=== PATIENT | female | born 1930 | race Caucasian/White ===

== ENCOUNTER 2020-01-25 19:48 | Observation (INO) | payer MEDICARE, OTHER ==
[2020-01-25] MEDS ORDERED: Sodium Chloride 0.9% 10 ML Syringe FLUSH PRN ×2 (20:27→22:15)
--- NOTE | 2020-01-25 20:47 | EDM.PDOC ---
ED HPI GENERAL MEDICAL PROBLEM - General Chief Complaint: Abdominal Pain Stated Complaint: ABDOMINAL PAIN Time Seen by Provider: 01/25/20 20:11 Source of Information: Reports: Patient, Family - History of Present Illness INITIAL COMMENTS - FREE TEXT/NARRATIVE: Jena is an [age]y/o female who is brought to the ER by her daughter for a 3 days history of nausea and chills. Tonight her daughter came to take her out for supper and she could not even eat. She has been very tired and had an upset stomach. She also reports a few bouts of dark colored diarrhea, denies minh blood. She has however been using Pepto-Bismol about 3 times daily for the last 3 days. She is weak and just doesn't feel well and keep saying she is cold. She lives in her own home and denies any COVID exposures. Abdominal Pain Score (Numeric/FACES): 5 - Related Data Allergies Allergy/AdvReac Type Severity Reaction Status Date / Time alendronate sodium Allergy Other Verified 01/25/20 19:51 [From Fosamax] aspirin Allergy Other Verified 01/25/20 19:51 calcitonin,salmon,synthetic Allergy Other Verified 01/25/20 19:51 [From Miacalcin] celecoxib [From Celebrex] Allergy Other Verified 01/25/20 19:51 codeine Allergy Cannot Verified 01/25/20 19:51 Remember erythromycin base Allergy Cannot Verified 01/25/20 19:51 Remember hydrochlorothiazide Allergy Other Verified 01/25/20 19:51 Penicillins Allergy Rash Verified 01/25/20 19:51 timolol maleate Allergy Other Verified 01/25/20 19:51 [From Timoptic] tramadol HCl [From Ultram] Allergy Other Verified 01/25/20 19:51 Home Meds: Home Meds Lisinopril 20 mg PO DAILY 10/01/15 [History] Carboxymethylcellulos/Glycerin [Refresh Optive Gel Eye Drops] 1 drop EYEBOTH BID 10/16/15 [History] Past Medical History HEENT History: Reports: Cataract, Other (See Below) Other HEENT History: astigmatism retinal disorder. dry eyes macular pucker. myopia. presbyopia. pseudophakos Cardiovascular History: Reports: High Cholesterol, Hypertension, Other (See Below) Other Cardiovascular History: varicose vein Gastrointestinal History: Reports: Colon Polyp, Diverticulosis, GERD, Other (See Below) Other Gastrointestinal History: elevated LFT's, hx of c. diff, abdominal pain [employer] History: Reports: Musculoskeletal History: Reports: Arthritis, Osteoporosis, Other (See Below) Other Musculoskeletal History: calcaneal spur, chronic fatigue, polymyalgia, rheumatica Neurological History: Reports: Seizure, Other (See Below) Other Neuro History: L sided low back pain with left sided sciatica Psychiatric History: Reports: Other (See Below) Other Psychiatric History: chronic fatigue syndrome Endocrine/Metabolic History: Reports: Osteoporosis, Vitamin D Deficiency Hematologic History: Reports: Anemia, Iron Deficiency Oncologic (Cancer) History: Reports: Breast Dermatologic History: Reports: Other (See Below) Other Dermatologic History: skin lesion R leg - Infectious Disease History Infectious Disease History: Reports: C-Difficile Other Infectious Disease History: herpes simplex virus - Past Surgical History HEENT Surgical History: Reports: Cataract Surgery, Retinal, Tonsillectomy, Other (See Below) GI Surgical History: Reports: Appendectomy, Cholecystectomy, Colonoscopy, EGD, Hernia Repair/Other, Other (See Below) Female Surgical History: Reports: Breast Reconstruction, Hysterectomy, Oophorectomy Oncologic Surgical History: Reports: Mastectomy Social & Family History - Tobacco Use Tobacco Use Status *Q: Former Tobacco User Used Tobacco, but Quit: Yes Month/Year Tobacco Last Used: 1994 Review of Systems - Review of Systems Review Of Systems: See Below Constitutional: Reports: Chills, Weakness Eyes: Reports: No Symptoms Ears: Reports: No Symptoms Nose: Reports: No Symptoms Mouth/Throat: Reports: No Symptoms Respiratory: Reports: No Symptoms Cardiovascular: Reports: No Symptoms GI/Abdominal: Reports: Abdominal Pain, Decreased Appetite, Diarrhea, Nausea Genitourinary: Reports: No Symptoms Musculoskeletal: Reports: No Symptoms Skin: Reports: No Symptoms Neurological: Reports: No Symptoms Psychiatric: Reports: No Symptoms ED EXAM, GENERAL - Physical Exam Exam: See Below General Appearance: Alert, WD/WN, No Apparent Distress (Elderly female, who does not appear to feel well. She is weak and requires standby assitance to get to the ER cart an then lay down.) Eye Exam: Bilateral Eye: PERRL Ears: Normal External Exam, Normal Canal, Hearing Grossly Normal, Normal TMs Nose: Normal Inspection, Normal Mucosa Throat/Mouth: Normal Inspection, Normal Lips, Normal Teeth, Normal Oropharynx, Normal Voice Head: Atraumatic, Normocephalic Neck: Normal Inspection, Supple, Non-Tender Respiratory/Chest: No Respiratory Distress, Normal Breath Sounds, Chest Non- Tender, Decreased Breath Sounds (bases) Cardiovascular: Normal Peripheral Pulses, Regular Rate, Rhythm, No Edema GI/Abdominal: Normal Bowel Sounds, Soft (diffusely with palpation, dififcult to say if she is bloated or her normal anatomy), Tender (Female) Exam: Deferred Rectal (Female) Exam: Normal Rectal Tone, Heme - Stool Back Exam: Normal Inspection Extremities: Normal Inspection, Normal Capillary Refill Neurological: Alert, Oriented, CN II-XII Intact Skin Exam: Warm, Dry, Intact, Normal Color Lymphatic: No Adenopathy #1 Interpretation EKG Date: 01/25/20 Time: 21:10 Rhythm: Other (Sinus Tachycardia) Rate (Beats/Min): 100 [place]: Normal P-Wave: Present QRS: Normal ST-T: Normal QT: Normal Comparison: NA - No Prior EKG Course - Vital Signs Text/Narrative:: 2010 The patient was seen by the [facility] [employer] [facility]. COVID test ordered and found to be negative. Additional labs and CXR ordered. 2144 CXR reviewed, note left lower consolidation developing-See final report. Labs reviewed. Note neutrophils=91.8%, BUN=20, Gyeknbw=626, and Lactic Acid=2.3. Will start tx for CAP. Ceftriaxone 1gm IVPB and Azithromycin 1gm IVPB ordered. Case discussed with Dr Hosea Palencia who advises Observation Admission. See orders. Will gently start IV fluids and repeat labs since Lactic Acid=2.4. Last Recorded V/S: Last Vital Signs Temp 37.1 C 01/25/20 21:29 Pulse 98 01/25/20 21:29 Resp 18 01/25/20 21:29 BP 162/76 H 01/25/20 21:29 Pulse Ox 92 L 01/25/20 21:29 - Orders/Labs/Meds Orders: Active Orders 24 hr Category Date Time Status Patient Status [ADT] Routine ADT 01/25/20 21:49 Ordered EKG Documentation Completion [RC] STAT Care 01/25/20 20:27 Active Chest 1V Frontal [CR] Stat Exams 01/25/20 20:27 Ordered CULTURE BLOOD [BC] Stat Lab 01/25/20 20:28 Ordered CULTURE BLOOD [BC] Stat Lab 01/25/20 20:28 Ordered CULTURE URINE [RM] Stat Lab 01/25/20 21:15 Received FECAL OCCULT BLOOD,POC DIAG [POC] Stat Lab 01/25/20 20:25 Ordered Sodium Chloride 0.9% [Saline Flush] Med 01/25/20 20:27 Active 10 ml FLUSH ASDIRECTED PRN Blood Culture x2 Reflex Set [OM.PC] Stat Oth 01/25/20 20:27 Ordered Saline Lock Insert [OM.PC] Stat Oth 01/25/20 20:27 Ordered Medication Orders Sodium Chloride (Saline Flush) 10 ml FLUSH ASDIRECTED PRN PRN Reason: Keep Vein Open Labs: Laboratory Tests 01/25/20 01/25/20 01/25/20 Range/Units 20:10 20:46 20:46 WBC 9.6 (4.0-10.0) x10^3/uL RBC 4.26 (4.00-5.50) x10^6/uL Hgb 13.2 (12.0-16.0) g/dL Hct 38.0 (33.0-47.0) % MCV 89.2 (78.0-93.0) fL MCH 31.0 (26.0-32.0) pg MCHC 34.7 (32.0-36.0) g/dL RDW Coeff of Vasquez 13.3 (10.0-15.0) % Plt Count 190 (130-400) x10^3/uL Neut % (Auto) 91.8 H (50.0-80.0) % Lymph % (Auto) 3.6 L (25.0-50.0) % [place] % (Auto) 3.5 (2.0-11.0) % Eos % (Auto) 0.9 (0.0-4.0) % Baso % (Auto) 0.2 (0.2-1.2) % Sodium 139 (136-145) mmol/L Potassium 3.5 (3.5-5.1) mmol/L Chloride 103 (98-107) mmol/L Carbon Dioxide 24 (21-32) mmol/L Anion Gap 15.5 (10-20) mmol/L BUN 20 H (7-18) mg/dL Creatinine 1.0 (0.55-1.02) mg/dL Est Cr Clr Drug Dosing 32.17 mL/min Estimated GFR (MDRD) 52 Glucose 135 H (74-106) mg/dL Lactic Acid (0.4-2.0) mmol/L Calcium 8.7 (8.5-10.1) mg/dL Corrected Calcium 9.18 (8.5-10.1) mg/dL Magnesium 1.8 (1.8-2.4) mg/dL Total Bilirubin 0.5 (0.2-1.0) mg/dL AST 23 (15-37) U/L ALT 19 (14-59) U/L Alkaline Phosphatase 81 (46-116) U/L Troponin I < 0.017 (<=0.056) ng/mL Total Protein 7.3 (6.4-8.2) g/dL Albumin 3.4 (3.4-5.0) g/dL Globulin 3.9 Albumin/Globulin Ratio 0.87 Amylase 64 (25-115) U/L Urine Color (YELLOW) Urine Appearance (CLEAR) Urine pH (5.0-8.0) Ur Specific [place] Urine Protein (NEGATIVE) mg/dL Urine Glucose (UA) (NEGATIVE) mg/dL Urine Ketones (NEGATIVE) mg/dL Urine Occult Blood (NEGATIVE) Urine Nitrite (NEGATIVE) Urine Bilirubin (NEGATIVE) Urine Urobilinogen (0.2) EU/dL Ur Leukocyte Esterase (NEGATIVE) Urine RBC (NOT SEEN) /HPF Urine WBC (NOT SEEN) /HPF Ur Squamous Epith Cells (NEGATIVE) /HPF Amorphous Sediment Urine Bacteria (NEGATIVE) /HPF Urine Mucus (NEGATIVE) /LPF Urine Opiates Screen (NEGATIVE) Ur Buprenorphine Scrn (NEGATIVE) Ur Oxycodone Screen (NEGATIVE) Ur EDDP (Meth Metab) (NEGATIVE) Urine Methadone Screen (NEGATIVE) Ur Barbiturates Screen (NEGATIVE) Ur Tricyclics Screen (NEGATIVE) Ur Phencyclidine Scrn (NEGATIVE) Ur Amphetamine Screen (NEGATIVE) U Methamphetamines Scrn (NEGATIVE) Urine MDMA Screen (NEGATIVE) U Benzodiazepines Scrn (NEGATIVE) U Cocaine Metab Screen (NEGATIVE) U Marijuana (THC) Screen (NEGATIVE) SARS CoV-2 RNA Rapid BLAKE Negative (NEGATIVE) 01/25/20 01/25/20 01/25/20 Range/Units 20:46 21:15 21:15 WBC (4.0-10.0) x10^3/uL RBC (4.00-5.50) x10^6/uL Hgb (12.0-16.0) g/dL Hct (33.0-47.0) % MCV (78.0-93.0) fL MCH (26.0-32.0) pg MCHC (32.0-36.0) g/dL RDW Coeff of [place] (10.0-15.0) % Plt Count (130-400) x10^3/uL Neut % (Auto) (50.0-80.0) % Lymph % (Auto) (25.0-50.0) % [place] % (Auto) (2.0-11.0) % Eos % (Auto) (0.0-4.0) % Baso % (Auto) (0.2-1.2) % Sodium (136-145) mmol/L Potassium (3.5-5.1) mmol/L Chloride (98-107) mmol/L Carbon Dioxide (21-32) mmol/L Anion Gap (10-20) mmol/L BUN (7-18) mg/dL Creatinine (0.55-1.02) mg/dL Est Cr Clr Drug Dosing mL/min Estimated GFR (MDRD) Glucose (74-106) mg/dL Lactic Acid 2.3 H* (0.4-2.0) mmol/L Calcium (8.5-10.1) mg/dL Corrected Calcium (8.5-10.1) mg/dL Magnesium (1.8-2.4) mg/dL Total Bilirubin (0.2-1.0) mg/dL AST (15-37) U/L ALT (14-59) U/L Alkaline Phosphatase (46-116) U/L Troponin I (<=0.056) ng/mL Total Protein (6.4-8.2) g/dL Albumin (3.4-5.0) g/dL Globulin Albumin/Globulin Ratio Amylase (25-115) U/L Urine Color Yellow (YELLOW) Urine Appearance Slightly cloudy H (CLEAR) Urine pH 5.0 (5.0-8.0) Ur Specific [place] 1.015 Urine Protein Negative (NEGATIVE) mg/dL Urine Glucose (UA) Negative (NEGATIVE) mg/dL Urine Ketones Negative (NEGATIVE) mg/dL Urine Occult Blood Small H (NEGATIVE) Urine Nitrite Negative (NEGATIVE) Urine Bilirubin Negative (NEGATIVE) Urine Urobilinogen 0.2 (0.2) EU/dL Ur Leukocyte Esterase Trace H (NEGATIVE) Urine RBC 0-5 (NOT SEEN) /HPF Urine WBC 0-5 (NOT SEEN) /HPF Ur Squamous Epith Cells Rare (NEGATIVE) /HPF Amorphous Sediment Moderate Urine Bacteria Few H (NEGATIVE) /HPF Urine Mucus Few H (NEGATIVE) /LPF Urine Opiates Screen Negative (NEGATIVE) Ur Buprenorphine Scrn Negative (NEGATIVE) Ur Oxycodone Screen Negative (NEGATIVE) Ur EDDP (Meth Metab) Negative (NEGATIVE) Urine Methadone Screen Negative (NEGATIVE) Ur Barbiturates Screen Negative (NEGATIVE) Ur Tricyclics Screen Negative (NEGATIVE) Ur Phencyclidine Scrn Negative (NEGATIVE) Ur Amphetamine Screen Negative (NEGATIVE) U Methamphetamines Scrn Negative (NEGATIVE) Urine MDMA Screen Negative (NEGATIVE) U Benzodiazepines Scrn Negative (NEGATIVE) U Cocaine Metab Screen Negative (NEGATIVE) U Marijuana (THC) Screen Negative (NEGATIVE) SARS CoV-2 RNA Rapid BLAKE (NEGATIVE) Meds: Medications Generic Name Dose Route Start Last Admin Trade Name Freq PRN Reason Stop Dose Admin Sodium Chloride 10 ml 01/25/20 20:27 Saline Flush FLUSH ASDIRECTED PRN Keep Vein Open - Radiology Interpretation Free Text/Narrative:: CXR=note consolidation along left lower lobe (See final report) Departure - Departure Time of Disposition: 22:06 Disposition: Refer to Observation Condition: Good Clinical Impression: Pneumonia Qualifiers: Pneumonia type: due to unspecified organism Laterality: left Lung location: lower lobe of lung Qualified Code(s): J18.9 - Pneumonia, unspecified organism - Discharge Information Referrals: Wandy Perez MD [Primary Care Provider] - Forms: ED Department Discharge Sepsis Event Note (ED) - Evaluation Sepsis Screening Result: No Definite Risk - Focused Exam Vital Signs: Vital Signs Temp Temp Pulse Resp BP Pulse Ox 01/25/20 21:29 37.1 C 98 18 162/76 H 92 L 01/25/20 19:51 36.6 C 115 H 18 158/81 H 92 L - My Orders Last 24 Hours: My Active Orders 01/25/20 20:25 FECAL OCCULT BLOOD,POC DIAG [POC] Stat 01/25/20 20:27 EKG Documentation Completion [RC] STAT Chest 1V Frontal [CR] Stat Sodium Chloride 0.9% [Saline Flush] 10 ml FLUSH ASDIRECTED PRN Blood Culture x2 Reflex Set [OM.PC] Stat Saline Lock Insert [OM.PC] Stat 01/25/20 20:28 CULTURE BLOOD [BC] Stat CULTURE BLOOD [BC] Stat 01/25/20 21:15 CULTURE URINE [RM] Stat 01/25/20 21:49 Patient Status [ADT] Routine - Assessment/Plan Admission H&P: Please use this note as an admission H&P Last 24 Hours: My Active Orders 01/25/20 20:25 FECAL OCCULT BLOOD,POC DIAG [POC] Stat 01/25/20 20:27 EKG Documentation Completion [RC] STAT Chest 1V Frontal [CR] Stat Sodium Chloride 0.9% [Saline Flush] 10 ml FLUSH ASDIRECTED PRN Blood Culture x2 Reflex Set [OM.PC] Stat Saline Lock Insert [OM.PC] Stat 01/25/20 20:28 CULTURE BLOOD [BC] Stat CULTURE BLOOD [BC] Stat 01/25/20 21:15 CULTURE URINE [RM] Stat 01/25/20 21:49 Patient Status [ADT] Routine Assessment:: 1)Early Pneumonia 2)Weakness Plan: -Admit Observation -Start Ceftriaxone/Azithromycin for CAP -Serial labs -See Orders
[2020-01-25 21:25] LABS: CHLORIDE,CL 103 mmol/L (98-107); SODIUM,NA 139 mmol/L (136-145)
[2020-01-25 21:26] LABS: BARBITURATE SCREEN,URINE NEGATIVE (NEGATIVE); BENZODIAZEPINES SCREEN,URINE NEGATIVE (NEGATIVE); EDDP,URINE SCREEN NEGATIVE (NEGATIVE); METHAMPHETAMINE SCREEN, URINE NEGATIVE (NEGATIVE); TCA SCREEN,URINE NEGATIVE (NEGATIVE); THC SCREEN,URINE 50 NG/ML NEGATIVE (NEGATIVE)
[2020-01-25 21:32] LABS: ANION GAP 15.5 mmol/L (10-20)
[2020-01-25] MEDS ORDERED: Ondansetron 4 MG/2 ML SDV IV PRN (22:15)
[2020-01-25] MEDS ORDERED: Ondansetron 4 MG Tab.DIS PO PRN (22:15)
[2020-01-25] MEDS: Azithromycin 500 MG in Sodium Chloride 0.9% 250 ML IV SCH (22:44)
[2020-01-25] MEDS: Sodium Chloride 0.9% 1,000 ML IV SCH (22:44)
[2020-01-25] MEDS: cefTRIAXone 1 GM Vial IVPUSH SCH (23:02)
[2020-01-26] MEDS: Acetaminophen 325 MG Tab PO PRN ×2 (01:48→22:57)
[2020-01-26 07:12] LABS: ANION GAP 12.4 mmol/L (10-20)
--- NOTE | 2020-01-26 07:45 | CR ---
[id number] RAD/RAD Chest Portable EXAM: RAD Chest Portable INDICATION: CHILLS, MALAISE COMPARISON: September 20, 2015. DISCUSSION: Cardiomediastinal silhouette is stable in size and contour. Large hiatal hernia. The aorta is tortuous. No infiltrate, effusion, pneumothorax, or edema. Pulmonary hyperinflation. IMPRESSION: No acute cardiopulmonary abnormality. Arjun Avelar DO 01/26/20 0743 Thank you for allowing us to participate in the care of your patient.
--- NOTE | 2020-01-26 09:10 | PCM.PN ---
- General Info Date of Service: 01/26/20 Admission Dx/Problem (Free Text): Pt. states that she is feeling better. She states that she slept well overnight. She has had only on BM since admission. Nursing reports that it was a normal, formed stool. Repeat lactic acid early this AM was normalized to 1.7 from 2.3. She has been afebrile, but states that she felt chilled in the night. Pt. has not had any cough. Radiology report of chest x-ray was read as negative for acute infiltrate or other pathology. Denies any dysuria, frequency, or urgency. She does have a trace of leukocytes in her urine. She is tolerating fluids well. Pt. denies any chest pain, shortness of breath, or lightheadedness. She has been on maintenance fluids since admission. Functional Status: Reports: Pain Controlled, Ambulating, Urinating - Review of Systems General: Reports: No Symptoms HEENT: Reports: No Symptoms Pulmonary: Reports: No Symptoms Cardiovascular: Reports: No Symptoms Gastrointestinal: Reports: Nausea Genitourinary: Reports: No Symptoms Musculoskeletal: Reports: No Symptoms Skin: Reports: No Symptoms Neurological: Reports: No Symptoms Psychiatric: Reports: No Symptoms - Patient Data Vitals - Most Recent: Last Vital Signs Temp 36.4 C 01/26/20 05:45 Pulse 80 01/26/20 05:45 Resp 16 01/26/20 05:45 BP 84/44 L 01/26/20 05:45 Pulse Ox 94 L 01/26/20 05:45 Weight - Most Recent: 64.41 kg I&O - Last 24 Hours: Intake & Output 01/25/20 01/26/20 01/26/20 22:59 06:59 14:59 Intake Total 975 Output Total 250 Balance 725 Lab Results Last 24 Hours: Laboratory Results - last 24 hr 01/25/20 01/25/20 01/25/20 Range/Units 20:10 20:46 20:46 WBC 9.6 (4.0-10.0) x10^3/uL RBC 4.26 (4.00-5.50) x10^6/uL Hgb 13.2 (12.0-16.0) g/dL Hct 38.0 (33.0-47.0) % MCV 89.2 (78.0-93.0) fL MCH 31.0 (26.0-32.0) pg MCHC 34.7 (32.0-36.0) g/dL RDW Coeff of Vasquez 13.3 (10.0-15.0) % Plt Count 190 (130-400) x10^3/uL Neut % (Auto) 91.8 H (50.0-80.0) % Lymph % (Auto) 3.6 L (25.0-50.0) % Maury % (Auto) 3.5 (2.0-11.0) % Eos % (Auto) 0.9 (0.0-4.0) % Baso % (Auto) 0.2 (0.2-1.2) % Sodium 139 (136-145) mmol/L Potassium 3.5 (3.5-5.1) mmol/L Chloride 103 (98-107) mmol/L Carbon Dioxide 24 (21-32) mmol/L Anion Gap 15.5 (10-20) mmol/L BUN 20 H (7-18) mg/dL Creatinine 1.0 (0.55-1.02) mg/dL Est Cr Clr Drug Dosing 32.17 mL/min Estimated GFR (MDRD) 52 Glucose 135 H (74-106) mg/dL Lactic Acid (0.4-2.0) mmol/L Calcium 8.7 (8.5-10.1) mg/dL Corrected Calcium 9.18 (8.5-10.1) mg/dL Magnesium 1.8 (1.8-2.4) mg/dL Total Bilirubin 0.5 (0.2-1.0) mg/dL AST 23 (15-37) U/L ALT 19 (14-59) U/L Alkaline Phosphatase 81 (46-116) U/L Troponin I < 0.017 (<=0.056) ng/mL Total Protein 7.3 (6.4-8.2) g/dL Albumin 3.4 (3.4-5.0) g/dL Globulin 3.9 Albumin/Globulin Ratio 0.87 Amylase 64 (25-115) U/L Urine Color (YELLOW) Urine Appearance (CLEAR) Urine pH (5.0-8.0) Ur Specific [place] Urine Protein (NEGATIVE) mg/dL Urine Glucose (UA) (NEGATIVE) mg/dL Urine Ketones (NEGATIVE) mg/dL Urine Occult Blood (NEGATIVE) Urine Nitrite (NEGATIVE) Urine Bilirubin (NEGATIVE) Urine Urobilinogen (0.2) EU/dL Ur Leukocyte Esterase (NEGATIVE) Urine RBC (NOT SEEN) /HPF Urine WBC (NOT SEEN) /HPF Ur Squamous Epith Cells (NEGATIVE) /HPF Amorphous Sediment Urine Bacteria (NEGATIVE) /HPF Urine Mucus (NEGATIVE) /LPF Urine Opiates Screen (NEGATIVE) Ur Buprenorphine Scrn (NEGATIVE) Ur Oxycodone Screen (NEGATIVE) Ur EDDP (Meth Metab) (NEGATIVE) Urine Methadone Screen (NEGATIVE) Ur Barbiturates Screen (NEGATIVE) Ur Tricyclics Screen (NEGATIVE) Ur Phencyclidine Scrn (NEGATIVE) Ur Amphetamine Screen (NEGATIVE) U Methamphetamines Scrn (NEGATIVE) Urine MDMA Screen (NEGATIVE) U Benzodiazepines Scrn (NEGATIVE) U Cocaine Metab Screen (NEGATIVE) U Marijuana (THC) Screen (NEGATIVE) SARS CoV-2 RNA Rapid BLAKE Negative (NEGATIVE) 01/25/20 01/25/20 01/25/20 Range/Units 20:46 21:15 21:15 WBC (4.0-10.0) x10^3/uL RBC (4.00-5.50) x10^6/uL Hgb (12.0-16.0) g/dL Hct (33.0-47.0) % MCV (78.0-93.0) fL MCH (26.0-32.0) pg MCHC (32.0-36.0) g/dL RDW Coeff of Vasquez (10.0-15.0) % Plt Count (130-400) x10^3/uL Neut % (Auto) (50.0-80.0) % Lymph % (Auto) (25.0-50.0) % Maury % (Auto) (2.0-11.0) % Eos % (Auto) (0.0-4.0) % Baso % (Auto) (0.2-1.2) % Sodium (136-145) mmol/L Potassium (3.5-5.1) mmol/L Chloride (98-107) mmol/L Carbon Dioxide (21-32) mmol/L Anion Gap (10-20) mmol/L BUN (7-18) mg/dL Creatinine (0.55-1.02) mg/dL Est Cr Clr Drug Dosing mL/min Estimated GFR (MDRD) Glucose (74-106) mg/dL Lactic Acid 2.3 H* (0.4-2.0) mmol/L Calcium (8.5-10.1) mg/dL Corrected Calcium (8.5-10.1) mg/dL Magnesium (1.8-2.4) mg/dL Total Bilirubin (0.2-1.0) mg/dL AST (15-37) U/L ALT (14-59) U/L Alkaline Phosphatase (46-116) U/L Troponin I (<=0.056) ng/mL Total Protein (6.4-8.2) g/dL Albumin (3.4-5.0) g/dL Globulin Albumin/Globulin Ratio Amylase (25-115) U/L Urine Color Yellow (YELLOW) Urine Appearance Slightly cloudy H (CLEAR) Urine pH 5.0 (5.0-8.0) Ur Specific [place] 1.015 Urine Protein Negative (NEGATIVE) mg/dL Urine Glucose (UA) Negative (NEGATIVE) mg/dL Urine Ketones Negative (NEGATIVE) mg/dL Urine Occult Blood Small H (NEGATIVE) Urine Nitrite Negative (NEGATIVE) Urine Bilirubin Negative (NEGATIVE) Urine Urobilinogen 0.2 (0.2) EU/dL Ur Leukocyte Esterase Trace H (NEGATIVE) Urine RBC 0-5 (NOT SEEN) /HPF Urine WBC 0-5 (NOT SEEN) /HPF Ur Squamous Epith Cells Rare (NEGATIVE) /HPF Amorphous Sediment Moderate Urine Bacteria Few H (NEGATIVE) /HPF Urine Mucus Few H (NEGATIVE) /LPF Urine Opiates Screen Negative (NEGATIVE) Ur Buprenorphine Scrn Negative (NEGATIVE) Ur Oxycodone Screen Negative (NEGATIVE) Ur EDDP (Meth Metab) Negative (NEGATIVE) Urine Methadone Screen Negative (NEGATIVE) Ur Barbiturates Screen Negative (NEGATIVE) Ur Tricyclics Screen Negative (NEGATIVE) Ur Phencyclidine Scrn Negative (NEGATIVE) Ur Amphetamine Screen Negative (NEGATIVE) U Methamphetamines Scrn Negative (NEGATIVE) Urine MDMA Screen Negative (NEGATIVE) U Benzodiazepines Scrn Negative (NEGATIVE) U Cocaine Metab Screen Negative (NEGATIVE) U Marijuana (THC) Screen Negative (NEGATIVE) SARS CoV-2 RNA Rapid BLAKE (NEGATIVE) 01/26/20 01/26/20 01/26/20 Range/Units 01:37 06:44 06:44 WBC 9.8 (4.0-10.0) x10^3/uL RBC 3.73 L (4.00-5.50) x10^6/uL Hgb 11.4 L D (12.0-16.0) g/dL Hct 33.8 (33.0-47.0) % MCV 90.6 (78.0-93.0) fL MCH 30.6 (26.0-32.0) pg MCHC 33.7 (32.0-36.0) g/dL RDW Coeff of Vasquez 13.3 (10.0-15.0) % Plt Count 181 (130-400) x10^3/uL Neut % (Auto) 86.0 H (50.0-80.0) % Lymph % (Auto) 6.6 L (25.0-50.0) % Maury % (Auto) 6.0 (2.0-11.0) % Eos % (Auto) 1.2 (0.0-4.0) % Baso % (Auto) 0.2 (0.2-1.2) % Sodium 138 (136-145) mmol/L Potassium 3.4 L (3.5-5.1) mmol/L Chloride 104 (98-107) mmol/L Carbon Dioxide 25 (21-32) mmol/L Anion Gap 12.4 (10-20) mmol/L BUN 22 H (7-18) mg/dL Creatinine 1.2 H (0.55-1.02) mg/dL Est Cr Clr Drug Dosing 26.81 mL/min Estimated GFR (MDRD) 42 Glucose 116 H (74-106) mg/dL Lactic Acid 1.7 (0.4-2.0) mmol/L Calcium 7.8 L (8.5-10.1) mg/dL Corrected Calcium (8.5-10.1) mg/dL Magnesium (1.8-2.4) mg/dL Total Bilirubin (0.2-1.0) mg/dL AST (15-37) U/L ALT (14-59) U/L Alkaline Phosphatase (46-116) U/L Troponin I (<=0.056) ng/mL Total Protein (6.4-8.2) g/dL Albumin (3.4-5.0) g/dL Globulin Albumin/Globulin Ratio Amylase (25-115) U/L Urine Color (YELLOW) Urine Appearance (CLEAR) Urine pH (5.0-8.0) Ur Specific [place] Urine Protein (NEGATIVE) mg/dL Urine Glucose (UA) (NEGATIVE) mg/dL Urine Ketones (NEGATIVE) mg/dL Urine Occult Blood (NEGATIVE) Urine Nitrite (NEGATIVE) Urine Bilirubin (NEGATIVE) Urine Urobilinogen (0.2) EU/dL Ur Leukocyte Esterase (NEGATIVE) Urine RBC (NOT SEEN) /HPF Urine WBC (NOT SEEN) /HPF Ur Squamous Epith Cells (NEGATIVE) /HPF Amorphous Sediment Urine Bacteria (NEGATIVE) /HPF Urine Mucus (NEGATIVE) /LPF Urine Opiates Screen (NEGATIVE) Ur Buprenorphine Scrn (NEGATIVE) Ur Oxycodone Screen (NEGATIVE) Ur EDDP (Meth Metab) (NEGATIVE) Urine Methadone Screen (NEGATIVE) Ur Barbiturates Screen (NEGATIVE) Ur Tricyclics Screen (NEGATIVE) Ur Phencyclidine Scrn (NEGATIVE) Ur Amphetamine Screen (NEGATIVE) U Methamphetamines Scrn (NEGATIVE) Urine MDMA Screen (NEGATIVE) U Benzodiazepines Scrn (NEGATIVE) U Cocaine Metab Screen (NEGATIVE) U Marijuana (THC) Screen (NEGATIVE) SARS CoV-2 RNA Rapid BLAKE (NEGATIVE) Haroldo Results Last 24 Hours: Microbiology 01/25/20 20:55 Anaerobic Blood Culture - Final Blood - Venous - Lab Draw Med Orders - Current: Current Medications Acetaminophen (Tylenol) 650 mg PO Q4H PRN PRN Reason: Pain (Mild 1-3)/fever Last Admin: 01/26/20 01:48 Dose: 650 mg Documented by: Ceftriaxone Sodium (Rocephin) 1 gm IVPUSH QPM@2300 [facility] Last Admin: 01/25/20 23:02 Dose: 1 gm Documented by: Azithromycin 500 mg/ Sodium (Chloride) 250 mls @ 250 mls/hr IV DAILY@2200 [facility] Last Admin: 01/25/20 22:44 Dose: 250 mls/hr Documented by: Sodium Chloride (Normal Saline) 1,000 mls @ 75 mls/hr IV ASDIRECTED [facility] Last Admin: 01/25/20 22:44 Dose: 75 mls/hr Documented by: Ondansetron HCl (Zofran Odt) 4 mg PO Q4H PRN PRN Reason: nausea, able to take PO Ondansetron HCl (Zofran) 4 mg IV Q4H PRN PRN Reason: Nausea/Vomiting Sodium Chloride (Saline Flush) 10 ml FLUSH ASDIRECTED PRN PRN Reason: Keep Vein Open Last Admin: 01/25/20 22:56 Dose: 10 ml Documented by: Sodium Chloride (Saline Flush) 10 ml FLUSH ASDIRECTED PRN PRN Reason: Keep Vein Open - Exam General: Alert, Oriented HEENT: Pupils Equal, Pupils Reactive, EOMI, Mucous Membr. Moist/[place] Neck: Supple Lungs: Decreased Breath Sounds (in bases), Crackles (L lower base) Cardiovascular: Regular Rate, Regular Rhythm GI/Abdominal Exam: Soft, Non-Tender, No Distention, No Mass (Female) Exam: Deferred Back Exam: Normal Inspection, Full Range of Motion Extremities: Normal Inspection, Normal Range of Motion, No Pedal Edema, Normal Capillary Refill Peripheral Pulses: 4+: Radial (L) Skin: Warm, Dry Wound/Incisions: Healing Well Neurological: No New Focal Deficit Psy/Mental Status: Alert, Normal Affect, Normal Mood Sepsis Event Note - Evaluation Sepsis Screening Result: No Definite Risk - Focused Exam Vital Signs: Vital Signs Temp Pulse Resp BP Pulse Ox Pulse Ox 01/26/20 05:45 36.4 C 80 16 84/44 L 94 L 01/26/20 01:51 37.2 C 88 18 114/60 95 01/25/20 22:17 37.1 C 98 20 156/85 H 94 L 01/25/20 22:15 94 L 01/25/20 21:29 37.1 C 98 18 162/76 H 92 L - Problem List Review Problem List Initiated/Reviewed/Updated: Yes - Plan Plan:: Will continue observation admission. Anticipate discharge tomorrow. Will continue IV rocephin and azithromycin. Again, the chest x-ray was read as negative by radiology, but clinically she has signs of pneumonia. The rocephin is also empirical treatment for her mild UTI. They likely cause of her symptoms is viral gastroenteritis. Stool O and P and culture were ordered. She has a history of c diff, but today her stool was formed and she does not been criteria for testing at this point. Will continue IV fluids. Will advance diet today. Encourage ambulation.
[2020-01-26] MEDS: Sodium Chloride 0.9% 1,000 ML IV SCH (13:07)
[2020-01-26] MEDS: cefTRIAXone 1 GM Vial IVPUSH SCH (22:42)
[2020-01-26] MEDS: Azithromycin 500 MG in Sodium Chloride 0.9% 250 ML IV SCH (22:42)
[2020-01-27] MEDS: Sodium Chloride 0.9% 1,000 ML IV SCH (02:14)
[2020-01-27 05:34] VITALS: BP 124/60; PULSE 82
--- NOTE | 2020-01-27 08:57 | PCM.DCSUM1 ---
Discharge Summary - Hospital Course Free Text/Narrative:: Pt. has continued to improve. She has been eating without difficulty. No diarrhea since admission. She has not been experiencing any nausea/vomiting. She does state that she has some gassiness but states that it is tolerable. Staff states that she has been able to ambulate to the bathroom. She has been up sitting in her chair. Pt. denies any cough, congestion or shortness of breath. No sore throat or rhinorrhea. Pt. relates that she is feeling much improved and feels she is well enough to be discharged home. Diagnosis: Stroke: No - Discharge Data Discharge Date: 01/27/20 Discharge Disposition: Home, Self-Care 01 Condition: Good - Referral to Home Health Primary Care Physician: Wandy Perez MD - Discharge Diagnosis/Problem(s) (1) UTI (urinary tract infection) SNOMED Code(s): 54243596 ICD Code: N39.0 - URINARY TRACT INFECTION, SITE NOT SPECIFIED Status: Acute Current Visit: Yes (2) Pneumonia SNOMED Code(s): 224578177 ICD Code: J18.9 - PNEUMONIA, UNSPECIFIED ORGANISM Status: Acute Current Visit: Yes Qualifiers: Pneumonia type: due to unspecified organism Laterality: left Lung location: lower lobe of lung Qualified Code(s): J18.9 - Pneumonia, unspecified organism - Patient Summary/Data Consults: Consultations 01/26/20 11:05 PT Evaluation and Treatment [CONS] Routine - Discharge Plan Home Medications: Home Meds Lisinopril 20 mg PO DAILY 10/01/15 [History] Carboxymethylcellulos/Glycerin [Refresh Optive Gel Eye Drops] 1 drop EYEBOTH BID 10/16/15 [History] Denosumab [Prolia] 60 mg SUBCUT ASDIRECTED 01/26/20 [History] Ibuprofen 400 mg PO TID PRN 01/26/20 [History] Multivitamin [Multi-Vitamin Daily] 1 tab PO DAILY 01/26/20 [History] Acetaminophen [Tylenol] 650 mg PO Q4H PRN tablet 01/27/20 [Rx] Forms: ED Department Discharge Referrals: Wandy Perez MD [Primary Care Provider] - - Discharge Summary/Plan Comment DC Time >30 min.: Yes Discharge Summary/Plan Comment: Pt. was started on levaquin 500mg once daily for 5 days. Again, she has had 2 days of IV rocephin and azithromycin in the hospital. Her lung sounds are clear today. I think a majority of her symptoms are secondary to gastroenteritis, but she does have a mild uti and had symptoms of pneumonia on admission. Chest x-ray was negative. Encouraged to drink plenty of fluids. Tylenol as needed for fever/discomfort. Recheck in clinic in 7-10 days, sooner if breathing trouble, lightheadedness, or other worrisome signs/symptoms. - General Info Date of Service: 01/27/20 Functional Status: Reports: Pain Controlled - Review of Systems General: Reports: No Symptoms HEENT: Reports: No Symptoms Pulmonary: Reports: No Symptoms Cardiovascular: Reports: No Symptoms Gastrointestinal: Reports: Flatus. Denies: Abdominal Pain, Diarrhea, Hematochezia, Melena, Nausea, Vomiting Genitourinary: Reports: No Symptoms Musculoskeletal: Reports: No Symptoms Skin: Reports: No Symptoms Neurological: Reports: No Symptoms Psychiatric: Reports: No Symptoms - Patient Data Vitals - Most Recent: Last Vital Signs Temp 36.2 C 01/27/20 05:32 Pulse 82 01/27/20 05:32 Resp 16 01/27/20 05:32 BP 124/60 01/27/20 05:32 Pulse Ox 96 01/27/20 05:32 Weight - Most Recent: 64.41 kg I&O - Last 24 hours: Intake & Output 01/26/20 01/27/20 01/27/20 22:59 06:59 14:59 Intake Total 1769 1250 240 Output Total 600 Balance 1769 650 240 Lab Results - Last 24 hrs: Laboratory Results - last 24 hr 01/27/20 Range/Units 06:25 Lactic Acid 0.8 (0.4-2.0) mmol/L JUAN Results - Last 24 hrs: Microbiology 01/25/20 21:15 Urine Culture - Final Urine, Clean Catch NO GROWTH AFTER 2 DAYS 01/25/20 20:55 Aerobic Blood Culture - Preliminary Blood - Venous - Lab Draw NO GROWTH AFTER 1 DAY Anaerobic Blood Culture - Final 01/25/20 20:46 Aerobic Blood Culture - Preliminary Blood - Venous NO GROWTH AFTER 1 DAY Anaerobic Blood Culture - Preliminary NO GROWTH AFTER 1 DAY Med Orders - Current: Current Medications Acetaminophen (Tylenol) 650 mg PO Q4H PRN PRN Reason: Pain (Mild 1-3)/fever Last Admin: 01/26/20 22:57 Dose: 650 mg Documented by: Ceftriaxone Sodium (Rocephin) 1 gm IVPUSH QPM@2300 [facility] Last Admin: 01/26/20 22:42 Dose: 1 gm Documented by: Azithromycin 500 mg/ Sodium (Chloride) 250 mls @ 250 mls/hr IV DAILY@2200 [facility] Last Admin: 01/26/20 22:42 Dose: 250 mls/hr Documented by: Sodium Chloride (Normal Saline) 1,000 mls @ 75 mls/hr IV ASDIRECTED [facility] Last Admin: 01/27/20 02:14 Dose: 75 mls/hr Documented by: Ondansetron HCl (Zofran Odt) 4 mg PO Q4H PRN PRN Reason: nausea, able to take PO Last Admin: 01/26/20 22:57 Dose: 4 mg Documented by: Ondansetron HCl (Zofran) 4 mg IV Q4H PRN PRN Reason: Nausea/Vomiting Sodium Chloride (Saline Flush) 10 ml FLUSH ASDIRECTED PRN PRN Reason: Keep Vein Open Discontinued Medications Sodium Chloride (Saline Flush) 10 ml FLUSH ASDIRECTED PRN PRN Reason: Keep Vein Open Last Admin: 01/25/20 22:56 Dose: 10 ml Documented by: - Exam Quality Assessment: Reports: Supplemental Oxygen General: Reports: Alert, Oriented HEENT: Reports: Pupils Equal, Pupils Reactive, EOMI, Mucous Membr. Moist/[place] Neck: Reports: Supple Lungs: Reports: Clear to Auscultation, Normal Respiratory Effort Cardiovascular: Reports: Regular Rate, Regular Rhythm GI/Abdominal Exam: Normal Bowel Sounds, Soft, Non-Tender, No Organomegaly, No Distention, No Mass (Female) Exam: Deferred Rectal (Female) Exam: Deferred Back Exam: Reports: Normal Inspection, Full Range of Motion Extremities: Normal Inspection, Normal Range of Motion, Non-Tender, No Pedal Edema, Normal Capillary Refill Skin: Reports: Warm, Dry, Intact Neurological: Reports: No New Focal Deficit Psy/Mental Status: Reports: Alert, Normal Affect, Normal Mood
== END 2020-01-27 10:30 | disposition home or self-care (01) ==
LOC: VM.ED 19:48 → VM.MS 21:49
PROVIDERS: ADMIT Nurse Practitioner Family; ATTEND Nurse Practitioner Family
DX: J18.9 Pneumonia, unspecified organism (principal); N39.0 Urinary tract infection, site not specified; R19.7 Diarrhea, unspecified; Z88.8 Allergy status to other drugs, medicaments and biological substances; Z88.5 Allergy status to narcotic agent; Z88.1 Allergy status to other antibiotic agents; Z88.0 Allergy status to penicillin; Z79.899 Other long term (current) drug therapy; Z98.890 Other specified postprocedural states; Z87.891 Personal history of nicotine dependence; Z20.828 Contact with and (suspected) exposure to other viral communicable diseases
CPT/HCPCS: 36415; 71045; 80048; 80053; 80305-QW; 81001; 82150; 82272; 83605; 83735; 84484; 85025; 87040; 87086; 93005; 96365; 96366; 96375; 96376; 97161-GP; 99285-25; A9270-GY; G0378; J0456; J0696; J7030; J7050; U0002